=== PATIENT | female | born 1960 | race Hispanic/Latino ===

== ENCOUNTER 2018-03-21 10:38 | Outpatient (CLI) | payer BC ==
--- NOTE | 2018-03-21 12:02 | BD ---
DEXA SCAN: DATE: 03/21/2018. PROVIDED CLINICAL HISTORY: Postmenopausal screening. FINDINGS: Lumbar Spine: BMD (g/cm2) L1 0.727 T-Score: -2.4 L2 0.736 T-Score: -2.7 L3 0.780 T-Score: -1.9 L4 0.826 T-Score: -2.1 L1-L4 0.790 T-Score: -2.3 Femoral Neck: 0.622 T-Score: -2 Total Femur: 0.757 T-Score: -1.5 Ten-year fracture risk major osteoporotic fracture 8.1% and hip fracture of 1.1%. Impression: Calculated bone mineral density meets WHO criteria for osteopenia and places the patient at increased risk for fracture. POS: [facility]
== END 2018-03-21 10:39 | disposition home or self-care (01) ==
LOC: BICMAMMO 10:38
PROVIDERS: ATTEND Obstetrics & Gynecology
DX: Z12.31 Encounter for screening mammogram for malignant neoplasm of breast (principal); M85.89 Other specified disorders of bone density and structure, multiple sites; Z80.3 Family history of malignant neoplasm of breast
CPT/HCPCS: 77063; 77067; 77080

== ENCOUNTER 2019-04-05 13:54 | Outpatient (CLI) | payer BC ==
--- NOTE | 2019-04-05 15:00 | MMO ---
Bilateral MAMMO Bilat Screen [facility]. CLINICAL HISTORY: Patient is 58 years old and is seen for screening. The patient has the following family history of breast cancer: sister, at age 50, malignant (generic). The patient has no personal history of cancer. The patient has a history of left Cyst Aspiration in January, - benign, right Excisional Biopsy in June, - benign, right Excisional Biopsy in June, - benign and right Cyst Aspiration in November, - benign. VIEWS: The views performed were: bilateral craniocaudal with tomosynthesis and bilateral mediolateral oblique with tomosynthesis. FILMS COMPARED: The present examination has been compared to prior imaging studies performed at [facility] on 02/06/2015, 03/02/2016, 03/18/2017 and 03/21/2018. This study has been interpreted with the assistance of computer-aided detection. MAMMOGRAM FINDINGS: The breasts are heterogeneously dense, which could obscure a lesion on mammography. There are stable benign appearing calcifications seen in both breasts. There are also vascular calcifications. There are no suspicious masses, suspicious calcifications, or new areas of architectural distortion. IMPRESSION: THERE IS NO MAMMOGRAPHIC EVIDENCE OF MALIGNANCY. A ROUTINE FOLLOW-UP MAMMOGRAM IN 1 YEAR IS RECOMMENDED. THE RESULTS OF THIS EXAM WERE SENT TO THE PATIENT. ACR BI-RADS Category 2 - Benign finding MAMMOGRAPHY NOTE: 1. A negative mammogram report should not delay a biopsy if a dominant of clinically suspicious mass is present. 2. Approximately 10% to 15% of breast cancers are not detected by mammography. 3. Adenosis and dense breasts may obscure an underlying neoplasm. Reported by: KARMA COFFEY MD Electonically Signed: [id number]
--- NOTE | 2019-04-05 15:18 | BD ---
BONE DENSITOMETRY USING DEXA: HISTORY: Age related osteoporosis without current pathological fracture. Screening for osteoporosis. FINDINGS LUMBAR SPINE BMD (g/cm2) T-SCORE Z-SCORE L1 0.743 -2.2 -1.1 L2 0.786 -2.2 -0.9 L3 0.898 -1.7 -0.3 L4 0.845 -2.0 -0.6 TOTAL 0.818 -2.1 0.8 BMD (g/cm2) T-SCORE Z-SCORE NECK 0.659 -1.7 0.5 TOTAL 0.826 -0.9 -0.1 IMPRESSION: Osteopenia. POS: [facility]
== END 2019-04-05 13:55 | disposition home or self-care (01) ==
LOC: BICMAMMO 13:54
PROVIDERS: ATTEND Obstetrics & Gynecology
DX: Z12.31 Encounter for screening mammogram for malignant neoplasm of breast (principal); M81.0 Age-related osteoporosis without current pathological fracture; Z80.3 Family history of malignant neoplasm of breast
CPT/HCPCS: 77063; 77067; 77080

== ENCOUNTER 2019-05-17 14:50 | Outpatient (CLI) | payer BC, OTHER ==
--- NOTE | 2019-05-18 08:13 | MRI ---
MRI BILATERAL BREASTS WITHOUT AND WITH CONTRAST: DATE: 05/17/19 COMPARISON: Mammogram dated 04/05/19. HISTORY: Increased risk of breast cancer. Patient has a sister and aunt with breast cancer. Patient has had tw o prior lumpectomies for benign processes. TECHNIQUE: Multiplanar, multisequence MR images were obtained of the bilateral breasts without and with IV contr ast. FINDINGS: Heterogeneously dense breast parenchyma is seen. Marked background parenchymal enhancement is seen wh ich limits evaluation on this exam. No suspicious mass or suspicious area of enhancement is appreciat ed on this limited exam. There are well circumscribed, nonenhancing foci of high T2 signal in both ki dneys which represent cysts. No axillary adenopathy is seen. No internal mammary lymph nodes are identified. The visualized anterior liver and osseous structures are unremarkable. IMPRESSION: BI-RADS Category 2 - Benign findings. Annual screening mammography is recommended. Please note that t his exam is limited secondary to significant background parenchymal enhancement. The patient reports that she does not have menstrual cycles at this time, but there is still significant estrogen stimula tion of the breast parenchyma causing the background parenchymal enhancement.
== END 2019-05-17 14:51 | disposition home or self-care (01) ==
LOC: BICMRI 14:50
PROVIDERS: ATTEND Obstetrics & Gynecology
DX: Z91.89 Other specified personal risk factors, not elsewhere classified (principal); Z80.3 Family history of malignant neoplasm of breast
CPT/HCPCS: A9577; C8908

== ENCOUNTER 2020-12-15 14:23 | Outpatient (CLI) | payer BC | END 2020-12-15 14:24 | disposition home or self-care (01) | LOC: BICMAMMO 14:23 | PROVIDERS: ATTEND Obstetrics & Gynecology | DX: Z12.31 Encounter for screening mammogram for malignant neoplasm of breast (principal); Z13.820 Encounter for screening for osteoporosis; Z80.3 Family history of malignant neoplasm of breast; Z91.89 Other specified personal risk factors, not elsewhere classified | CPT/HCPCS: 77063; 77067; 77080 ==